=== PATIENT | male | born 1975 | race Caucasian/White ===

== ENCOUNTER 2021-08-20 23:26 | Emergency (ER) | payer OTHER ==
[~2021-08-20] VITALS: Ht 190.5 cm; Wt 119.7 kg
[2021-08-20 23:51] VITALS: BP 151/84
[2021-08-20] MEDS ORDERED: ACET500T68 PO (23:56)
[2021-08-20] MEDS ORDERED: IBUP800T19 PO (23:56)
[2021-08-20] MEDS ORDERED: BUPR150T15 PO (23:56)
[2021-08-21] MEDS ORDERED: CLINDAMYCIN HCL 150 MG CAPSULE PO ONE
[2021-08-21] MEDS ORDERED: KETOROLAC 60 MG/2 ML VIAL. IM ONE
[2021-08-21] MEDS ORDERED: CLIN-95 PO (00:01)
--- NOTE | 2021-08-21 00:01 | PHYS DOC ---
General Adult EDM: Chief Complaint: KNEE SWELLING HPI: HPI: Patient is a 46-year-old male coming in for right knee redness, warmth, pain and swelling. Patient states his symptoms were getting worse over the past couple of days. Was kneeling on the floor couple of days ago received having pain. Had a similar episode a couple of years ago and was treated with clindamycin for septic bursitis. Denies any swelling or pain in the knee joint itself. Denies any wounds. No systemic complaints or fevers. Review of Systems: Review of Systems: All other systems within normal limits except for as noted in the HPI Allergies: Allergies: Allergies Coded Allergies Type Severity Reaction Last Updated Verified No Known Drug Allergies 08/20/21 No Physical Exam: PE: Constitutional: Well developed, well nourished, no acute distress, non-toxic appearance. [] HENT: Normocephalic, atraumatic, bilateral external ears normal, nose normal. [] Eyes: PERRLA, conjunctiva normal, no discharge. [] Neck: No rigidity, supple, no stridor. [] Cardiovascular: Regular rate and rhythm, brisk cap refill [] Lungs & Thorax: Non labored symmetric respirations, no tachypnea or respiratory distress [] Abdomen: Soft, nondistended. Skin: Warm, dry, no erythema, no rash. [] Back: Unremarkable Extremities: No deformities, range of motion grossly intact, no lower extremity edema erythema and swelling with a small amount of fluid collection in the right prepatellar bursa Neurologic: Alert and oriented X 3, no focal deficits noted. [] Psychologic: Affect normal, judgement normal, mood normal. [] Current Patient Data: Vital Signs: Vital Signs Date Time Temp Pulse Resp B/P (MAP) Pulse Ox O2 Delivery O2 Flow Rate FiO2 08/20/21 23:51 98.1 71 18 151/84 (106) 94 Room Air EKG: EKG: [] Radiology/Procedures: Radiology/Procedures: [] Heart Score: C/O Chest Pain: No Risk Factors: Risk Factors: DM, Current or recent (<one month) smoker, HTN, HLP, family history of CAD, obesity. Risk Scores: Score 0 - 3: 2.5% MACE over next 6 weeks - Discharge Home Score 4 - 6: 20.3% MACE over next 6 weeks - Admit for Clinical Observation Score 7 - 10: 72.7% MACE over next 6 weeks - Early Invasive Strategies Course & Med Decision Making: Course & Med Decision Making Pertinent Labs and Imaging studies reviewed. (See chart for details) Not enough fluid collection for aspiration. We will treat empirically with antibiotics with return precautions. [] Dragon Disclaimer: Dragon Disclaimer: This electronic medical record was generated, in whole or in part, using a voice recognition dictation system. Departure Departure: Impression: Primary Impression: Bursitis, prepatellar, right Disposition: HOME / SELF CARE / HOMELESS Condition: STABLE Referrals: PCP,UNKNOWN (PCP) Patient Instructions: Bursitis Scripts Clindamycin Hcl (CLINDAMYCIN HCL) 300 Mg Capsule 1 CAP PO TID for antibiotic for 14 Days, #42 CAP Prov: MARIANA TEJEDA MD 08/21/21 MARIANA TEJEDA MD Aug 21, 2021 00:01
== END 2021-08-21 00:19 | disposition home or self-care (01) ==
LOC: ER 23:26
DX: M70.41 Prepatellar bursitis, right knee (principal); Y93.89 Activity, other specified
CPT/HCPCS: 96372; 99283; J1885